=== PATIENT | male | born 1950 | race Two or more races ===

== ENCOUNTER 2024-05-09 06:57 | Inpatient (IN) | payer OTHER ==
[2024-05-09] VITALS (14 sets, daily range): BP systolic 96–132; BP diastolic 57–99; PULSE 69–83; RESP 14–18; TEMP 97.6–98.7; O2SAT 94–99
[~2024-05-09] VITALS: Ht 154.3 cm; Wt 121.1 kg
[2024-05-09] MEDS: PREGABALIN CAPSULE 75 MG CAP ONE (06:33)
[2024-05-09] MEDS: ACETAMINOPHEN IV 100 ML IV ONE (06:34)
[~2024-05-09 06:57] MED LIST: ATOR10TA52 PO; HYDR12.59 PO
[2024-05-09] MEDS: TETRACAINE 1% INJ 2 ML VIAL IJ ONE (09:11)
[2024-05-09] MEDS: TRANEXAMIC ACID 20 ML ONE (09:11)
[2024-05-09] MEDS ORDERED: KETAMINE 50mg/ML 1ml syringe ONE (09:14)
[2024-05-09] MEDS ORDERED: SODIUM CHLORIDE LOCK 10 ML ONE (09:14)
[2024-05-09] MEDS ORDERED: ONDANSETRON HCL 4 MG/2 ML VIAL ONE (09:14)
[2024-05-09] MEDS ORDERED: BUPIVACAINE/DEXTROSE MPF 0.75% 2 ML AMP IT ONE (09:14)
[2024-05-09] MEDS ORDERED: fentaNYL CITRATE 100 MCG/2 ML VL ONE (09:14)
[2024-05-09] MEDS ORDERED: PROPOFOL 10 MG/ML 20 ML IV ONE (09:14)
[2024-05-09] MEDS: ACETAMINOPHEN IV 1000 MG/100ML (10MG/ML) IV ONE (09:15)
[2024-05-09] MEDS: LACTATED RINGER'S 1,000 ML IV SCH (09:15)
[2024-05-09] MEDS ORDERED: NITROGLYCERIN 0.4 MG SL TAB SL PRN (09:15)
[2024-05-09] MEDS: PREGABALIN CAPSULE 75 MG CAP PO ONE (09:15)
[2024-05-09] MEDS: CELECOXIB 100 MG CAP PO ONE (09:15)
[2024-05-09] MEDS ORDERED: MORPHINE SULFATE INJ 2 MG/ml SYRG IV PRN ×2 (09:15→13:15)
[2024-05-09] MEDS ORDERED: MIDAZOLAM HCL 2MG/2ML 2ml VIAL (1mg/ml) ONE (09:16)
[2024-05-09] MEDS: hydroCHLOROthiazide 25 MG TAB PO SCH (10:00)
[2024-05-09] MEDS: ceFAZolin 2 GM/D5W100ml 100 ML IV ONE (10:25)
[2024-05-09] MEDS: KETOROLAC TROMETH 30 MG/ML 1ML VIAL ONE (12:25)
[2024-05-09] MEDS: BUPIVACAINE HCL 0.25% P/F 10 ML VIAL ONE (12:25)
[2024-05-09] MEDS: MORPHINE SULF PF 5 MG/10 ML VIAL ONE (12:25)
[2024-05-09] MEDS ORDERED: HYDROmorphone HCL 2 MG/ML VL/or syr IV PRN ×2 (13:15)
[2024-05-09] MEDS ORDERED: MORPHINE SULFATE 4 MG/ML SYR/VIAL IV PRN (13:15)
[2024-05-09] MEDS: KETOROLAC TROMETH 30 MG/ML 1ML VIAL IV ONE (13:15)
[2024-05-09] MEDS ORDERED: NALOXONE HCL 0.4 MG/ML VIAL IV PRN (13:15)
[2024-05-09] MEDS: METOCLOPRAMIDE HCL 5MG/ml INJ 2ml VIAL IV ONE (13:15)
[2024-05-09] MEDS ORDERED: diphenhdrAMINE HCL 50 MG/1 ML VL IV PRN (13:15)
[2024-05-09] MEDS: SODIUM CHLOR 0.9% PF (SALINE LOCK) 10ML VIAL/SYR IV SCH (14:00)
[2024-05-09] MEDS ORDERED: ceFAZolin 2 GM/D5W50ml 50 ML IV SCH (14:00)
--- NOTE | 2024-05-09 15:03 | DVH ---
EXAM: XY PELVIS AP CLINICAL INDICATION: SP Right SIMA TECHNIQUE: XY PELVIS AP Comparison: None FINDINGS/IMPRESSION: Right hip arthroplasty. Postsurgical changes are present.
[2024-05-09] MEDS: DOCUSATE SOD 100 MG CAP PO SCH (17:39)
[2024-05-09] MEDS: CEFEPIME 1GM/ 50ML 50 ML IV SCH (17:40)
[2024-05-09] MEDS: ONDANSETRON HCL 4 MG/2 ML VIAL IV PRN (17:52)
[2024-05-09] MEDS: ATORVASTATIN 20 MG TAB PO SCH (21:46)
[2024-05-09] MEDS: ceFAZolin 2 GM/D5W50ml 50 ML IV SCH (21:47)
[2024-05-10] VITALS (16 sets, daily range): BP systolic 94–132; BP diastolic 54–74; PULSE 71–111; RESP 16–20; TEMP 96.8–99.3; O2SAT 92–98
[2024-05-10 07:47] LABS: Hematocrit 38.3 % (41.0-53.0); Hemoglobin 13.5 g/dL (13.5-17.5)
[2024-05-10 07:48] LABS: Albumin 3.8 g/dL (3.2-4.8); Anion Gap 7 (5-15); BUN/Creatinine Ratio 23.5 (10.0-20.0); Bilirubin, Total 1.2 mg/dL (0.2-1.0); Blood Urea Nitrogen 12 mg/dL (9-23); Calcium 10.2 mg/dL (8.7-10.4); Carbon Dioxide 27 mmol/L (20-31); Chloride 102 mmol/L (98-107); Glucose 83 mg/dL (74-106); Potassium 3.8 mmol/L (3.5-5.1); Sodium 136 mmol/L (136-145); Total Protein 5.8 g/dL (5.7-8.2)
[2024-05-10 07:53] LABS: Alanine Aminotransferase 338 U/L (7-40); Alkaline Phosphatase 137 U/L (46-116); Aspartate Aminotransferase 327 U/L (13-40)
--- NOTE | 2024-05-10 08:06 | DVHPN2 ---
Progress Note Date Seen: May 10, 2024 Medical Necessity Reason Pt with a Central, PICC or Fol: No Subjective Patient reports: No new complaints Objective vital signs Vital Sign Date Time Temp Pulse Resp B/P (MAP) Pulse Ox O2 Delivery O2 Flow Rate FiO2 05/10/24 07:00 80 18 97 05/10/24 05:00 97.4 103/59 (74) 97.4 05/09/24 20:00 Nasal Cannula* 2 28 Total Intake and Output 05/09/24 05/09/24 05/10/24 15:00 23:00 07:00 Intake Total 220 ml 100 ml 350 ml Balance 220 ml 100 ml 350 ml medications Current Medications Medications Dose Ordered Sig/Marleen Route Start Time Stop Time Status Last Admin Dose Admin Atorvastatin Calcium 10 mg HS PO 05/09/24 22:00 05/09/24 21:46 10 MG Hydrochlorothiazide 25 mg DAILY PO 05/09/24 10:00 Lactated Ringer's 1,000 ml @ 100 mls/hr Q10H IV 05/09/24 09:15 Sodium Chloride 10 ml Q8HR IV 05/09/24 14:00 05/10/24 05:18 10 ML Oxycodone/ Acetaminophen 1 tab Q4HP PRN PO 05/09/24 09:15 Hydromorphone HCl 1 mg Q2HP PRN IV 05/09/24 09:15 Ondansetron HCl 4 mg Q6HP PRN IV 05/09/24 09:15 05/09/24 17:52 4 MG Docusate Sodium 100 mg Q12HR PO 05/09/24 10:00 05/09/24 21:46 100 MG Enoxaparin Sodium 40 mg DAILY SC 05/10/24 10:00 Nitroglycerin 0.4 mg Q5MINP PRN SL 05/09/24 09:15 Cefepime HCl 50 ml @ 12.5 mls/hr DAILY IV 05/09/24 10:00 05/09/24 17:40 12.5 MLS/HR Diphenhydramine HCl 25 mg Q4HP PRN IV 05/09/24 13:15 Cefazolin Sodium/ Dextrose 50 ml @ 50 mls/hr Q8H IV 05/09/24 22:00 05/10/24 14:59 05/10/24 05:13 50 MLS/HR Examination: GENERAL:Normal, MSK:Abnormal laboratory and microbiology Laboratory Tests 05/10/24 04:30 Test 05/10/24 04:30 Range/Units Serum Glucose 83 74-106 mg/dL Problem List/Assessment/Plan Problem List/Assessment/Plan 73 year old male who is s/p Right SIMA POD 1 1. Pain control 2. DVT ppx 3. WBAT RLE with walker and posterior hip precautions 4. Physical therapy with posterior hip protocol 5. Abduction pillow at night when sleeping 6. patient did have some issues with urinary retention last night, will monitor the issue Plan discussed with: Patient Date of Service: May 10, 2024 Billing Provider: DEONTE JENKINS MD Common Visit Codes: NOT BILLABLE JAMSHID CANALES NP May 10, 2024 08:06
[2024-05-10] MEDS: ENOXAPARIN SOD 40 MG/0.4 ML SYRINGE SC SCH (09:16)
[2024-05-10] MEDS: OXYCODONE W/ ACETAMINOPHEN 5/325MG TABLET PO PRN (09:18)
--- NOTE | 2024-05-10 10:08 | DVHINCON2 ---
Date of service: May 10, 2024 Reason for Consultation Medical management while in the hospital History of Present Illness 73 year old male who is s/p Right SIMA POD 1. Currently patient is clinically stable. Complains of some dribbling during duration. Says he participated with the physical therapy and ambulated outside the room with a walker. Pain is tolerable. Patient takes cholesterol medication at home. Patient also drinks 2-4 vodkas few times a week. Currently denied any chest pain shortness for breath. His other review of systems otherwise reviewed normal. Past Medical History Hypercholesterolemia, osteoarthritis Past Surgical History None significant noted besides this hip surgery Family History: Patient reports no known family medical history. Allergies: Coded Allergies: NO KNOWN ALLERGIES (Unverified , 05/05/24) Home Meds Reported Medications Hydrochlorothiazide (Hydrochlorothiazide) Unknown Strength Cap, PO DAILY for 30 Days, MG 05/05/24 Atorvastatin Calcium (ATORVASTATIN CALCIUM) Unknown Strength Tab, PO DAILY, #30 TAB 5 Refills 05/05/24 Current Medications Current Medications Medications (Trade) Dose Ordered Sig/Marleen Route PRN Reason Start Time Stop Time Status Last Admin Atorvastatin Calcium (Lipitor) 10 mg HS PO 05/09/24 22:00 05/09/24 21:46 Sodium Chloride (Saline Lock Ns) 10 ml Q8HR IV 05/09/24 14:00 05/10/24 05:18 Enoxaparin Sodium (Lovenox) 40 mg DAILY SC 05/10/24 10:00 05/10/24 09:16 Cefazolin Sodium/ Dextrose 50 ml @ 50 mls/hr Q8HR IV 05/09/24 14:00 05/09/24 18:37 DC Hydromorphone HCl (Dilaudid Injection) 0.5 mg Q10M PRN IV SEVERE PAIN (7-10 PAIN SCALE) 05/09/24 13:15 05/09/24 13:56 DC Morphine Sulfate 2 mg Q4H PRN IV BREAKTHRU PAIN SCALE 7-10 05/09/24 13:15 05/09/24 17:16 DC Hydromorphone HCl (Dilaudid Injection) 0.25 mg Q10M PRN IV MODERATE PAIN (4-6 PAIN SCALE) 05/09/24 13:15 05/09/24 13:46 DC Morphine Sulfate 1 mg Q30M PRN IV SEVERE PAIN (7-10 PAIN SCALE) 05/09/24 13:15 05/09/24 15:16 DC Diphenhydramine HCl (Benadryl Injection) 25 mg Q4HP PRN IV FOR ITCHING 05/09/24 13:15 Naloxone HCl (Narcan) 0.2 mg Q5M PRN IV For respirations < than 10/min 05/09/24 13:15 05/09/24 13:21 DC Cefazolin Sodium/ Dextrose 50 ml @ 50 mls/hr Q8H IV 05/09/24 22:00 05/10/24 14:59 05/10/24 05:13 Review of Systems No fevers chills or sweats. No headache dizziness lightheadedness. Other review of systems reviewed normal. Vital Signs Vital Signs Date Time Temp Pulse Resp B/P (MAP) Pulse Ox O2 Delivery O2 Flow Rate FiO2 05/10/24 07:00 80 18 97 05/10/24 05:00 97.4 103/59 (74) 97.4 05/09/24 20:00 Nasal Cannula* 2 28 Physical Exam Pleasant gentleman comfortable in bed without distress. His family and nurse are at bedside. HEENT neck supple no JVD pupils equal round react to light. Heart regular rate and rhythm S1-S2 without murmurs gallops. Lungs fair air movement chest tube will expansion without rales wheezes. Abdomen obese soft nontender positive bowel sounds. Extremities no edema positive distal pedal pulses. Labs/Diagnostic Data Labs Test 05/10/24 04:30 Range/Units Hemoglobin 13.5 13.5-17.5 g/dL Hematocrit 38.3 L 41.0-53.0 % Sodium Level 136 136-145 mmol/L Potassium Level 3.8 3.5-5.1 mmol/L Chloride Level 102 98-107 mmol/L Carbon Dioxide Level 27 20-31 mmol/L Anion Gap 7 5-15 Blood Urea Nitrogen 12 9-23 mg/dL Creatinine 0.51 L 0.700-1.30 mg/dL Glomerular Filtration Rate Calc 106 >90 mL/min BUN/Creatinine Ratio 23.5 H 10.0-20.0 Serum Glucose 83 74-106 mg/dL Calcium Level 10.2 8.7-10.4 mg/dL Total Bilirubin 1.2 H 0.2-1.0 mg/dL Aspartate Amino Transferase (AST) 327 H 13-40 U/L Alanine Aminotransferase (ALT) 338 H 7-40 U/L Alkaline Phosphatase 137 H 46-116 U/L Total Protein 5.8 5.7-8.2 g/dL Albumin 3.8 3.2-4.8 g/dL Assessment Hypercholesterolemia Hypertension Transaminitis Status post hip surgery I will order ultrasound of the liver. Patient counseled and educated regarding abstinence from alcohol and to withhold his statin for 2-3 weeks still liver function tests normalized. Meantime continue physical therapy. Social Service consultation for home physical therapy with walker. We will follow the liver tests in the morning. Otherwise continue rest of supportive care and treatment. Further clinical management per clinical course. Discussed with the patient and nurse regarding his diagnosis and hospital care plan. Problems(with codes): (1) Transaminitis (2) HTN (hypertension) (3) Status post hip surgery Plan discussed with: Patient, Other MOMO MOSQUEDA MD May 10, 2024 10:07
[2024-05-10] MEDS: HYDROmorphone HCL 2 MG/ML VL/or syr IV PRN (16:25)
[2024-05-10] MEDS ORDERED: LACTULOSE 20Gm/30ML SOLN PO PRN (16:45)
[2024-05-10] MEDS: TAMSULOSIN HYDROCHLORIDE 0.4 MG CAP PO SCH (18:41)
[2024-05-10] MEDS: SENNA 8.6 MG TAB PO SCH (21:59)
[2024-05-11] VITALS (8 sets, daily range): BP systolic 107–116; BP diastolic 49–66; PULSE 93–108; RESP 18–20; TEMP 98.7–99.6; O2SAT 91–100
[2024-05-11 06:04] LABS: Anion Gap 7 (5-15); BUN/Creatinine Ratio 23.5 (10.0-20.0); Blood Urea Nitrogen 12 mg/dL (9-23); Calcium 10.4 mg/dL (8.7-10.4); Carbon Dioxide 29 mmol/L (20-31); Chloride 100 mmol/L (98-107); Glucose 99 mg/dL (74-106); Potassium 3.7 mmol/L (3.5-5.1); Total Protein 5.8 g/dL (5.7-8.2)
[2024-05-11 06:05] LABS: Albumin 3.8 g/dL (3.2-4.8)
[2024-05-11 06:06] LABS: Hematocrit 38.7 % (41.0-53.0); Hemoglobin 13.5 g/dL (13.5-17.5)
[2024-05-11 06:21] LABS: Alanine Aminotransferase 220 U/L (7-40); Alkaline Phosphatase 138 U/L (46-116); Aspartate Aminotransferase 146 U/L (13-40); Bilirubin, Total 1.3 mg/dL (0.2-1.0); Sodium 136 mmol/L (136-145)
--- NOTE | 2024-05-11 06:24 | DVH ---
INDICATION: elevated LFTs TECHNIQUE: Multiple real-time sonographic images were obtained of the right upper quadrant. COMPARISON: None FINDINGS: The liver demonstrates heterogenous echotexture without focal mass lesions. The liver measu res 14cm. There is no intrahepatic or extrahepatic ductal dilatation. The common duct measures 0.8 mm. Gallbladder removed. The right kidney measures 13 cm. The right kidney is normal in contour, size, and shape. The echogen icity is normal. There is no hydronephrosis. The pancreas is not well visualized due to overlying bowel gas. IMPRESSION: Hepatic steatosis.
[2024-05-11] MEDS: CELECOXIB 100 MG CAP ONE (08:13)
--- NOTE | 2024-05-11 10:12 | DVHDS2 ---
Discharge Summary Date of Admission May 09, 2024 at 12:54 Date of Discharge: May 11, 2024 Wounds: If the wound is draining please change the gauze pad on the wound until it stops. If drainage persists past 10 days please notify our office. If there is a sticky gel dressing over your wound, you may leave this in place for as long as it is clean and dry. If it becomes loose or causes skin irritation, it is OK to remove it and place clean gauze over your wound. 1. You might notice some bruising around the surgical site, this is normal. 2. Check your temperature on a daily basis. Please note that a low-grade temp below 101 is not uncommon after surgery especially during the first 3 days. Notify the office if your temperature spikes above 101.5 after the 3 rd post-operative date. 3. Many patients experience significant swelling in the thigh, this may extend below the knee and sometimes to the ankle. Swelling increases during the first week and subsides during [place] [id number] [facility], [address] [place] [id number] [facility] Office: [phone] [id number] 4. Provided you have been on a blood thinner since surgery and have been up and about at least three times per day, the risk of a blood clot is low and this swelling is an expected part of recovery. It will largely or completely resolve by your first post-operative visit. 5. Renny, if present, will be removed at 2 weeks during initial post-op visit. Labs/Diagnostic Data: Laboratory Results Test 05/11/24 05:17 Hemoglobin 13.5 g/dL (13.5-17.5) Hematocrit 38.7 % (41.0-53.0) Sodium Level 136 mmol/L (136-145) Potassium Level 3.7 mmol/L (3.5-5.1) Chloride Level 100 mmol/L (98-107) Carbon Dioxide Level 29 mmol/L (20-31) Anion Gap 7 (5-15) Blood Urea Nitrogen 12 mg/dL (9-23) Creatinine 0.51 mg/dL (0.700-1.30) Glomerular Filtration Rate Calc 106 mL/min (>90) BUN/Creatinine Ratio 23.5 (10.0-20.0) Serum Glucose 99 mg/dL (74-106) Calcium Level 10.4 mg/dL (8.7-10.4) Total Bilirubin 1.3 mg/dL (0.2-1.0) Aspartate Amino Transferase (AST) 146 U/L (13-40) Alanine Aminotransferase (ALT) 220 U/L (7-40) Alkaline Phosphatase 138 U/L (46-116) Total Protein 5.8 g/dL (5.7-8.2) Albumin 3.8 g/dL (3.2-4.8) Other Laboratory Tests 05/11/24 05:17 Brief Hx & Hospital Course: s/p right total hip arthroplasty Condition at Discharge: Good Final Diagnosis/Problems List right hip osteoarthritis Discharge Disposition: Home with Health Services Discharge Instruct/Medications Diet: See Comment Diet comment: can advance diet as tolerated, drink plenty of fluids Activity: See Comment Activity comment: 1. You can bear as much weight as you tolerate on your hip unless specifically instructed otherwise. You may use the walking aid which you were discharged with and switch to a cane whenever you feel comfortable doing so. You should use an assistive device until you can walk comfortably without it. Keep in mind that every patient moves at their own speed of recovery so take your time. 2. A physical therapist will visit you at home. 3. Although guarantees against a dislocation do not exist, the hip was noted to be sufficiently stable in surgery. Below are motions that you should dischargenot do for 4-6 weeks, depending on the surgical approach used. If there are questions, please call the office. a. Bend forward past 90 degrees b. Sit on a regular low chair, couch, car seat etc... c. Cross your legs d. Use a regular low toilet seat. e. Sleep on your stomach or on either side. 3. High impact activity such as jumping, aerobics, tennis, and skiing are not permitted during the first 3 months after surgery. These activities can contribute to accelerated wear and should be done with caution after this time. Discuss this with your surgeon if you have questions. 4. Although a bath or whirlpool is NOT permitted during the first 2-3 weeks, you may shower as soon as you get home from the hospital provided you are able to keep your bandage clean and dry and there is no wound drainage. If you are unable to place a secured covering over your bandage bed bath/sponge bath may likely be the more appropriate option. 5. Swimming is not permitted until the wound is healed, which typically occurs approximately 3-4 weeks after surgery. Follow Up/Referral: 1. Driving is not permitted within the first 2 weeks. 2. Your first postoperative visit will take place 2weeks after discharge. Please call the office to arrange this appointment. 3. Antibiotic preventative treatment is required before dental or other invasive procedures. Please ask your surgeon about this at your first postoperative visit. Your hip replacement contains metal which may activate metal detectors. You may wish to carry a letter from your surgeon to communicate this to security personnel. If you experience chest pain, shortness of breath or severe painful calf swelling, go to the nearest emergency room to be evaluated. Please call our office once your situation is stabilized. Medications: 1. You will be discharged with pain medication, Aspirin as a blood thinner and sometimes an anti-inflammatory medication such as Celebrex or Mobic might be prescribed. Please follow the instructions regarding these medicines as provided by your nurse at the hospital. 2. Narcotic pain medication has side effects, including constipation. Please ensure you continue to take stool softeners (Colace, Senna) while taking your pain medication to help protect against constipation. Getting up and moving around at least a few times per day helps with this also. 3. Lovenox 40 Sq x 12 days followed by one regular strength 325 mg coated aspirin daily for 4 weeks after surgery. Then, take one baby aspirin, 81 mg daily for 6 weeks more. A major, yet preventable, complication of Orthopaedic Surgery is a blood clot (DVT). It is important not to miss any doses of this important medication. 4. You should restart all of your prescription medications once discharged unless specifically instructed otherwise. 5. Herbal supplements may be restarted 2 weeks after surgery. Discharge Statement: "Patient was advised to return to the ER or call 911 if any headaches, dizziness, shortness of breath, chest pain, abdominal pain, bleeding, fevers, or worsening of medical condition. Patient was counseled about treatment plan, medications, possible side effects, patientverbalized understanding. All questions were answered to the best of my ability. This discharge took greater then 30 minutes in planning, reviewing documentation, counseling the patient, and discussing with other team members." ASSESSMENT ASSESSMENT Assessment JAMSHID CANALES NP May 11, 2024 10:12
--- NOTE | 2024-05-20 18:38 | DVHOP2 ---
Operative Report - 2 Report Details Date: 05/09/24 Preop Diagnosis: Right hip osteoarthritis Postop Diagnosis: right hip osteoarthritis Surgeon: Ricki APARICIO. Anirudh THAKUR Notching Press Operator: Brent BARKER Anesthesiologist: Moises APARICIO Anesthesia: General Implant: Grisel Consent: The patient was informed of the risks and benefits of the procedure. These include but are not limited to complications of anesthesia, postoperative infection, incomplete relief of symptoms, recurrence of symptoms, damage to blood vessels, nerves and tendons, deep venous thrombosis, pulmonary embolism and possible need for repeat surgery in the future. Estimated Blood Loss: 300 cc Name of Procedure Performed Right total hip arthroplasty Procedure Details Procedure Details: FINDINGS: Extensive degenerative disease with grade IV changes INDICATION: This patient has failed non-operative treatments for hip arthritis and is now indicated for a total hip replacement. Preoperatively in the waiting area as well as in the office, I had a long discussion with the patient regarding the plan, the expected outcome, the risks, benefits, and alternatives of surgery. The risks include, but are not limited to, infection (which may require future surgery and removal of implants) , bleeding (which may require a transfusion), damage to nerves, arteries, veins, tendons, muscles and other adjacent structures. Also discussed the possibilities of dislocation, leg-length discrepancy, intraoperative fractures, implant loosening, heterotopic bone formation, and revision for variety of reasons, and medical complications etc. This was discussed at length and consent has been obtained. DESCRIPTION OF PROCEDURE: In the preoperative holding area, the consent was reviewed and the appropriate extremity was verified by the patient and marked with my initials. The patient was then transferred to the operating theatre. Appropriate anesthetia was induced. All bony prominences were well padded. A time out was performed verifying the side and site of surgery according to standard protocol. Preoperative antibiotics were given. Tranexamic acid {WAS/WAS NOT:[id number]} given. The patient was then placed in the lateral decubitus position and fixed with rigid pelvic fixation. All bony prominences were well padded and an axillary roll was placed. The affected hip area was then prepped and draped in the usual sterile fashion. We made a standard posterolateral incision sharply through the skin and carried our dissection down through subcutaneous tissue to the underlying fascia achieving hemostasis where necessary. We incised the fascia in line with our in cision. We identified and protected the sciatic nerve. We took down the external rotators and hip capsule from their insertion into the greater trochanter, tagged them and retracted them posteriorly for further protection of the sciatic nerve. A check point was placed into the greater trochanter and the hip center and leg length length were registered. We then dislocated the femoral head and performed an osteotomy of the femoral neck in accordance with our pre-operative plan. The labrum was excised with a long-handle knife, and we exposed the acetabular rim and cotyloid fossa. We then reamed up to our final size in accordance with the preoperative plan. We copiously irrigated and then impacted the final cup into position. We confirmed the position with the robotic navigation guidance. Attention was then turned to the femur. We used a box osteotome followed by a canal finder to gain entry to the canal. Intramedullary contents were suctioned and care was taken to ensure they did not touch the tissues. We sequentially reamed until good cortical contact, then broached up to out final size. We trialed with the appropriate femoral neck and head and reduced the hip. The hip was taken through a full range of motion. The hip soft tissues were examined in extension and external rotation, the anterior capsule and IT band were palpated, and combined anteversion was determined to be 40 degrees. The hip was stable at maximum flexion, at 90 degrees of flexion and 45 degrees of internal rotation and the position of sleep. Leg lengths were restored as shown using the computer navigation, and the trial LTC matched preoperative and intraoperative templating. The hip was then dislocated and trial components removed. We copiously irrigated the wound and impacted the final femoral stem into position. The femoral head was impacted onto a clean and dry trunion and confirmed to be seated. The hip was reduced ensuring to tissues in the acetabular cup. We again brought it through a full functional range of motion and there was no evidence for dislocation, instability, or impingement. The checkpoint was removed. A dilute betadine solution (17.5mL in 500mL saline) was used to wash the joint and left to sit for 3 minutes. This was then irrigated out with copious amounts of p ulse lavage. We sprinkled 1g vancomycin powder below the fascia and 1g above the fascia. We copiously irrigated the wound and soft tissues. The short external rotators and capsule were repaired to the greater trochanter through drill holes, and the quadratus was repaired. We palpated the sciatic nerve in continuity without tension. The fascia was closed with vicryl and a barbed s uture. We closed over the fascia with vicryl suture and re-approximated the skin with jose. A sterile dressing was placed. We returned the patient to the supine position. We verified all lower extremity compartments were soft and compressible and that we had intact distal pulses and checked our leg length gnosticism. The patient was then transferred to the recovery room in stable condition Condition Good Disposition Still a Patient DEONTE JENKINS MD May 20, 2024 18:38
== END 2024-05-11 17:50 | disposition home health service (06) | DRG 470 ==
LOC: SUR 06:57 → UNDOADMIN 09:02 → OVERFLOW 09:02 → TELE-WESTW 15:14
PROVIDERS: ADMIT Orthopaedic Surgery Adult Reconstructive Orthopaedic Surgery; ATTEND Orthopaedic Surgery Adult Reconstructive Orthopaedic Surgery
PROC: 0SR90JZ Replacement of Right Hip Joint with Synthetic Substitute, Open Approach (ICD-10-PCS; principal; 2024-05-09 10:20)
DX: M16.11 Unilateral primary osteoarthritis, right hip (principal); I10 Essential (primary) hypertension; E78.00 Pure hypercholesterolemia, unspecified; R74.01 Elevation of levels of liver transaminase levels; Z96.641 Presence of right artificial hip joint
CPT/HCPCS: 36415; 72170; 76705; 80053; 85014; 85018; 86850; 86900; 86901; 97110; 97116; 97163; 97530; A4565; G0378; J0131; J1885; J2250; J2405; J2704; J3490

== ENCOUNTER 2024-05-13 20:46 | Emergency (ER) | payer OTHER ==
[~2024-05-13] VITALS: Ht 175.3 cm; Wt 114.0 kg
[2024-05-13 20:54] VITALS: TEMP 98.1
--- NOTE | 2024-05-13 21:11 | ED.PDOC ---
History of Present Illness(SKN HPI Comments 73Y M with PMHx sleep apnea and total rt hip replacement presents to ED for chief complaint wound check. Pt states he underwent total rt hip replacement on 05/09/2024 at [facility]. After being discharged, pt was not sent home with abx or supplies for dressing changes. Pt presents to ED with saturated dressing over suture/jose on rt hip. Pt denies fever. No other symptoms reported. Pt has f/u appt with surgeon next week. Chief Complaint: Wound Check Time Seen by MD: 20:52 History of Present Illness: Nurses Notes, Medications, Allergies Allergies: Coded Allergies: NO KNOWN ALLERGIES (Unverified , 05/05/24) Home Meds Reported Medications Hydrochlorothiazide (Hydrochlorothiazide) Unknown Strength Cap, PO DAILY for 30 Days, MG 05/05/24 Atorvastatin Calcium (ATORVASTATIN CALCIUM) Unknown Strength Tab, PO DAILY, #30 TAB 5 Refills 05/05/24 Information Source: Patient Mode of Arrival: Wheelchair Severity: Mild Timing: Days Duration: Since onset Prehospital treatment: None Location: Other (rt hip) Mechanism: Preceding Wound Occurence: Indoors Object: None Condition of Object: None Retained Foreign Body: No Wound Type: Other Immunization Status of Animal: NA History of: None Associated Signs and Symptoms: None Past Medical History PAST MEDICAL HISTORY: Denies Surgical History: Denies all surgeries Surgical History (Other): Recent rt hip replacement Family History Family History: Unknown Social History Smoker: Quit Greater Than 1 Year Alcohol: Denies ETOH Use Drugs: Denies Drug Use Lives In: Home Constitutional: denies: chills, diaphoresis, fatigue, fever, malaise, sweats, weakness, others EENTM: denies: blurred vision, double vision, ear bleeding, ear discharge, ear drainage, ear pain, ear ringing, eye pain, eye redness, hearing loss, mouth pain, mouth swelling, nasal discharge, nose bleeding, nose congestion, nose pain, photophobia, tearing, throat pain, throat swelling, voice changes, others Respiratory: denies: cough, hemoptysis, orthopnea, SOB at rest, shortness of breath, SOB with excertion, stridor, wheezing, others Cardiovascular: denies: chest pain, dizzy spells, diaphoresis, Dyspnea on exertion, edema, irregular heart beat, left arm pain, lightheadedness, palpitations, PND, syncope, others Gastrointestinal: denies: abdomen distended, abdominal pain, blood streaked bowels, constipated, diarrhea, dysphagia, difficulty swallowing, hematemesis, melena, nausea, poor appetite, poor fluid intake, rectal bleeding, rectal pain, vomiting, others Genitourinary: denies: burning, dysuria, flank pain, frequency, hematuria, incontinence, penile discharge, penile sore, pain, testicle pain, testicle swelling, urgency, others Neurological: denies: dizziness, fainting, headache, left sided numbness, left sided weakness, numbness, paresthesia, pre-existing deficit, right sided numbness, right sided weakness, seizure, speech problems, tingling, tremors, weakness, others Musculoskeletal: denies: back pain, gout, joint pain, joint swelling, muscle pain, muscle stiffness, neck pain, others Integumetry: reports: wounds (s/p rt hip replacement); denies: bruises, change in color, change in hair/nails, dryness, laceration, lesions, lumps, rash, others Allergic/Immunocompromised: denies: Difficulty Healing, Frequent Infections, Hives, Itching, others Hematologic/Lymphatic: denies: anemia, blood clots, easy bleeding, easy bruising, swollen glands, others Endocrine: denies: excessive hunger, excessive sweating, excessive thirst, excessive urination, flushing, intolerance to cold, intolerance to heat, unexplained weight gain, unexplained weight loss, others Psychiatric: denies: anxiety, bipolar disorder, depression, hopeless, panic disorder, schizophrenia, sleepless, suicidal, others All Other Systems: Reviewed and Negative Physical Exam General Appearance: Mild Distress ( moderate distress due to some discomfort re lated to his recent hip replacement concerns.), Normal HEENT: Normal ENT Inspection, Pharynx Normal, TMs Normal Neck: Full Range of Motion, Non-Tender, Normal, Normal Inspection Respiratory: Chest Non-Tender, Lungs Clear, No Accessory Muscle Use, No Respiratory Distress, Normal Breath Sounds Cardiovascular: No Edema, No JVD, No Murmur, No Gallop, Normal Peripheral Pulses, Regular Rate/Rhythm Breast Exam: Deferred Gastrointestinal: No Organomegaly, Non Tender, No Pulsatile Mass, Normal Bowel Sounds, Soft Genitalia: Deferred Pelvic: Deferred Rectal: Deferred Extremities: Other ( A saturated dressing was removed from the right hip region revealing a surgical incisions site that appears healthy. Localized edema, erythema and ecchymosis as expected. Wound has no dehiscence noted. Jose and mattress suture appear to be competent.) Musculoskeletal : Apperance: Normal Neurologic: Alert, No Motor Deficits, Normal Affect, Normal Mood, No Sensory Deficits Cerebellar Function: Normal Reflexes: Normal Skin: Dry, Normal Color, Warm, Wounds (rt hip replacement: suture and jose with saturated dressing) Lymphatic: No Adenopathy Was a procedure done? Was a procedure done?: No Differential Diagnosis (INTG) Differential Diagnosis: Cellulitis, Other ( Postoperative wound evaluation) X-Ray, Labs, Meds, VS Vital Signs Date Time Temp Pulse Resp B/P (MAP) Pulse Ox O2 Delivery O2 Flow Rate FiO2 05/13/24 20:54 98.1 107 18 114/71 (85) 96 98.1 Lab Test 05/13/24 21:10 Range/Units White Blood Count 9.1 4.4-10.8 10^3/uL Red Blood Count 4.84 4.5-5.90 10^6/uL Hemoglobin 15.2 13.5-17.5 g/dL Hematocrit 43.6 # 41.0-53.0 % Mean Corpuscular Volume 90.0 80.0-100.0 fL Mean Corpuscular Hemoglobin 31.4 28.0-32.0 pg Mean Corpuscular Hemoglobin Concent 34.9 32.0-36.0 g/dL Red Cell Distribution Width 13.2 11.8-14.3 % Platelet Count 292 140-450 10^3/uL Mean Platelet Volume 7.8 6.9-10.8 fL Neutrophils (%) (Auto) 68.6 37.0-80.0 % Lymphocytes (%) (Auto) 15.1 10.0-50.0 % Monocytes (%) (Auto) 12.1 H 0.0-12.0 % Eosinophils (%) (Auto) 3.5 0.0-7.0 % Basophils (%) (Auto) 0.7 0.0-2.0 % Neutrophils # (Auto) 6.2 1.6-8.6 10 ^3/uL Lymphocytes # (Auto) 1.4 0.4-5.4 10 ^3/uL Monocytes # (Auto) 1.1 0-1.3 10 ^3/uL Eosinophils # (Auto) 0.3 0-0.8 10 ^3/uL Basophils # (Auto) 0.1 0-0.2 10 ^3/uL Nucleated Red Blood Cells 0.0 % Sodium Level Pending Potassium Level Pending Chloride Level Pending Carbon Dioxide Level Pending Anion Gap Pending Blood Urea Nitrogen Pending Creatinine Pending Glomerular Filtration Rate Calc Pending BUN/Creatinine Ratio Pending Serum Glucose Pending Calcium Level Pending X-Ray, Labs, Meds, VS Comment Advised patient that the wound is healing well. Patient's bandages were placed him advised patient to do daily dressing changes to stave off the concerns of brought into the hospital today. Advised patient maintain his follow up appointment with his surgeon for postop evaluation. Time of 1ST Reevaluation: 22:44 Reevaluation 1ST: Unchanged Consultation: PCP, Surgery Patient Education/Counseling: Diagnosis, Treatment Family Education/Counseling: Diagnosis, Treatment Departure 1 Departure Time of Disposition: 22:44 Impression: Primary Impression: Encounter for assessment of wound Disposition: 01 HOME / SELF CARE / HOMELESS Condition: Stable Additional Instructions: Advised patient do daily dressing changes and maintain follow up appointment with surgeon as scheduled. Patient can utilize home pain medications as needed. Discharged With: Self, Friend Critical Care Note Critical Care Time?: No Stability Stability form required: No Heart Score Heart Score: Heart Score Response (Comments) Value History N/A 0 EKG N/A 0 Age N/A 0 Risk Factors N/A 0 Troponin N/A 0 Total 0 I personally scribed for MARY BETH CHINCHILLA PAC ([email or web address]) on 05/13/24 at 21:11. Electronically submitted by Devika Blevins ([email or web address]). MARY BETH CHINCHILLA PAC May 13, 2024 21:11
[2024-05-13 21:47] LABS: Basophils # (auto) 0.1 10 ^3/uL (0-0.2); Basophils % (auto) 0.7 % (0.0-2.0); Eosinophils # (auto) 0.3 10 ^3/uL (0-0.8); Eosinophils % (auto) 3.5 % (0.0-7.0); Hematocrit 43.6 % (41.0-53.0); Hemoglobin 15.2 g/dL (13.5-17.5); Lymphocytes # (auto) 1.4 10 ^3/uL (0.4-5.4); Lymphocytes % (auto) 15.1 % (10.0-50.0); Mean Corpuscular Hemoglobin 31.4 pg (28.0-32.0); Mean Corpuscular Hgb Conc. 34.9 g/dL (32.0-36.0); Monocytes # (auto) 1.1 10 ^3/uL (0-1.3); Monocytes % (auto) 12.1 % (0.0-12.0); Neutrophils # (auto) 6.2 10 ^3/uL (1.6-8.6); Neutrophils % (auto) 68.6 % (37.0-80.0); Platelet Count (auto) 292 10^3/uL (140-450); Red Blood Cells 4.84 10^6/uL (4.5-5.90); Red Cell Distribution Width 13.2 % (11.8-14.3); White Blood Cell 9.1 10^3/uL (4.4-10.8)
[2024-05-13 21:50] LABS: Chloride 103 mmol/L (98-107); Potassium 4.1 mmol/L (3.5-5.1); Sodium 137 mmol/L (136-145)
[2024-05-13 21:51] LABS: Anion Gap 9 (5-15); Carbon Dioxide 25 mmol/L (20-31)
[2024-05-13 21:56] LABS: BUN/Creatinine Ratio 21.9 (10.0-20.0); Blood Urea Nitrogen 16 mg/dL (9-23)
[2024-05-13 22:41] LABS: Calcium 11.3 mg/dL (8.7-10.4); Glucose 113 mg/dL (74-106)
[2024-05-13 23:09] VITALS: BP 125/67; PULSE 95; RESP 18; O2SAT 94
== END 2024-05-13 23:19 | disposition home or self-care (01) ==
LOC: ER 20:46
DX: Z48.01 Encounter for change or removal of surgical wound dressing (principal); Z96.641 Presence of right artificial hip joint; Z79.899 Other long term (current) drug therapy; Z87.891 Personal history of nicotine dependence
CPT/HCPCS: 36415; 80048; 85025